=== PATIENT | male | born 1975 | race Caucasian/White ===

== ENCOUNTER 2017-10-14 12:09 | Emergency (ER) | payer OTHER, SELFPAY ==
[~2017-10-14] VITALS: Ht 180.3 cm; Wt 90.0 kg
[2017-10-14] MEDS ORDERED: ONDANSETRON ODT 4 MG PO ONE (12:30)
[2017-10-14] MEDS ORDERED: LORazepam 1MG TABLET PO ONE (12:30)
[2017-10-14] MEDS ORDERED: THIAMINE 100MG TABLET PO ONE (12:30)
[2017-10-14] MEDS ORDERED: ESCI5TAB PO (12:33)
[2017-10-14] MEDS ORDERED: AMIT10TA PO (12:33)
[2017-10-14 12:52] LABS: MEAN CORPUSCULAR HEMOGLOBIN 28.8 pg (27.5-34.5); MEAN CORPUSCULAR VOLUME 84.7 fL (81-97); MEAN PLATELET VOLUME 7.8 fL (7.4-10.4); PLATELET COUNT 360 x10^3/uL (130-400); RED BLOOD COUNT 6.38 x10^6/uL (4.38-5.82); RED CELL DISTRIBUTION WIDTH 13.4 % (9.4-14.8)
[2017-10-14] MEDS ORDERED: PLEASE ENTER ALLERGIES MC SCH (13:00)
[2017-10-14 13:01] LABS: ALANINE AMINOTRANSFERASE 89 U/L (12-78); ALBUMIN 3.9 g/dL (3.4-5.0); ANION GAP 12 mmol/L (5-15); CALCIUM 8.7 mg/dL (8.5-10.1); CHLORIDE 97 mmol/L (98-107)
[2017-10-14 13:05] LABS: ALKALINE PHOSPHATASE 112 U/L (45-117); BILIRUBIN,TOTAL 0.8 mg/dL (0.2-1.0); CREATININE 0.87 mg/dL (0.7-1.3); SALICYLATE LEVEL < 1.7 mg/dL (2.8-20.0); TOTAL PROTEIN 8.1 g/dL (6.4-8.2)
[2017-10-14] MEDS ORDERED: ONDANSETRON ODT 4 MG ONE ×2 (13:05→13:09)
[2017-10-14] MEDS ORDERED: LORazepam 1MG TABLET ONE (13:05)
[2017-10-14 13:06] LABS: ACETAMINOPHEN < 2 mcg/mL (10-30)
[2017-10-14] MEDS ORDERED: THIAMINE 100MG TABLET ONE (13:10)
[2017-10-14 14:01] LABS: BASOPHILS # (AUTO) 0.11 x10^3/uL (0-0.1); BASOPHILS % (AUTO) 1 % (0-1); EOSINOPHILS % (AUTO) 0 % (1-7); LYMPHOCYTES # (AUTO) 1.36 x10^3/uL (1-3.4); LYMPHOCYTES % (AUTO) 6 % (22-44); MONOCYTES # (AUTO) 1.12 x10^3/uL (0.2-0.8); MONOCYTES % (AUTO) 5 % (2-9); NEUTROPHILS # (AUTO) 19.98 x10^3/uL (1.8-6.8); NEUTROPHILS % (AUTO) 89 % (42-75)
[2017-10-14 14:02] LABS: MD SCAN
[2017-10-14] MEDS ORDERED: LORazepam 2 MG/ML, 1ML ONE ×2 (15:03→18:47)
[2017-10-14] MEDS: LORazepam 2 MG/ML, 1ML IVPush PRN ×3 (15:22→18:49)
[2017-10-14] MEDS ORDERED: SODIUM CHLORIDE 0.9%, 500ML IVBOLUS ONE (15:30)
[2017-10-14] MEDS ORDERED: SODIUM CHLORIDE FLUSH 10ML SYR IVF ONE (15:30)
[2017-10-14] MEDS ORDERED: SODIUM CHLORIDE 0.9% 1,000ML IVBOLUS ONE (15:30)
[2017-10-14 15:49] LABS: AMPHETAMINE SCREEN, URINE Negative (Negative); OPIATE SCREEN, URINE Negative (Negative)
[2017-10-14 15:52] LABS: BARBITURATE SCREEN, URINE Negative (Negative); BENZODIAZEPINE SCREEN, URINE Negative (Negative); CANNABINOID SCREEN, URINE Positive (Negative); COCAINE SCREEN, URINE Negative (Negative); METHADONE SCREEN, URINE Negative (Negative)
[2017-10-14] MEDS ORDERED: MAGNESIUM SULFATE 2 GM, THIAMINE 100 MG, FOLIC ACID 1 MG, MVI ADULT 10 ML in SODIUM CHL... IV ONE (16:00)
[2017-10-14 16:30] LABS: MEAN CORPUSCULAR HGB CONC 33.8 g/dL (33.2-36.2); MEAN CORPUSCULAR VOLUME 85.8 fL (81-97); MEAN PLATELET VOLUME 7.8 fL (7.4-10.4); PLATELET COUNT 312 x10^3/uL (130-400); RED BLOOD COUNT 5.69 x10^6/uL (4.38-5.82); RED CELL DISTRIBUTION WIDTH 13.5 % (9.4-14.8)
[2017-10-14 16:59] LABS: BASOPHILS # (AUTO) 0.02 x10^3/uL (0-0.1); BASOPHILS % (AUTO) 0 % (0-1); EOSINOPHILS # (AUTO) 0.01 x10^3/uL (0-0.4); EOSINOPHILS % (AUTO) 0 % (1-7); LYMPHOCYTES # (AUTO) 1.29 x10^3/uL (1-3.4); LYMPHOCYTES % (AUTO) 6 % (22-44); MD SCAN; MONOCYTES # (AUTO) 1.26 x10^3/uL (0.2-0.8); MONOCYTES % (AUTO) 6 % (2-9); NEUTROPHILS # (AUTO) 18.21 x10^3/uL (1.8-6.8); NEUTROPHILS % (AUTO) 88 % (42-75)
[2017-10-14] MEDS ORDERED: IBUPROFEN 200 MG TABLET ONE ×2 (19:55→20:00)
[2017-10-14] MEDS ORDERED: IBUPROFEN 200 MG TABLET PO ONE (20:00)
[2017-10-15] MEDS ORDERED: LORazepam 2 MG/ML, 1ML ONE ×7 (00:45→17:08)
[2017-10-15] MEDS: LORazepam 2 MG/ML, 1ML IVPush PRN ×4 (00:51→17:10)
[2017-10-15 04:21] LABS: MICROSCOPIC NOT IND
[2017-10-15] MEDS ORDERED: ONDANSETRON 2MG/ML, 2ML ONE ×2 (04:46→11:31)
[2017-10-15] MEDS ORDERED: ONDANSETRON 2MG/ML, 2ML IVPush ONE ×2 (05:00→11:30)
[2017-10-15] MEDS ORDERED: LORazepam 1MG TABLET ONE (07:42)
[2017-10-15] MEDS ORDERED: LORazepam 1MG TABLET PO ONE (08:00)
[2017-10-15] MEDS ORDERED: LORazepam 2 MG/ML, 1ML IVPush ONE ×2 (10:30→11:30)
== END 2017-10-15 17:12 | disposition home or self-care (01) ==
LOC: ED 20:46
DX: R45.851 Suicidal ideations (principal); F10.129 Alcohol abuse with intoxication, unspecified; F17.210 Nicotine dependence, cigarettes, uncomplicated
CPT/HCPCS: 36415; 80053; 80307; 80329; 81003; 85025; 96365; 96366; 96375; 96376; 99285; J2060; J2405; J3411; J3475; J7030; J7040; Q0162; G0479; G0480